=== PATIENT | male | born 1960 | race Caucasian/White ===

== ENCOUNTER 2018-11-12 13:16 | Observation (INO) | payer OTHER, SELFPAY ==
[2018-11-12] VITALS (10 sets, daily range): BP systolic 116–135; BP diastolic 67–89; PULSE 56–89; RESP 13–16; TEMP 36.9–37.7; O2SAT 95–97; BMI 20.2; BMI 18.6; BMI 18.7
--- NOTE | 2018-11-12 13:26 | RAD_ITS ---
STUDY: X-RAY CHEST REASON FOR EXAM: Male, 58 years old. Chest pain. TECHNIQUE: Single AP portable view of the chest. COMPARISON: None. FINDINGS: EKG electrodes are seen. The lungs are clear and expanded. Scattered calcified granulomas. There is no demonstrated pleural abnormality. Normal size heart. Normal mediastinum and jesenia. Normal visualized pulmonary arteries. There is atherosclerotic tortuosity of the aortic arch and descending thoracic aorta. Normal visualized thoracic spine. Normal visualized ribs, clavicles, and shoulders. There is no demonstrated abnormality of the visualized soft tissue structures of the upper abdomen. RAD/Chest 1 View (Portable) IMPRESSION: Normal x-ray examination of the chest. Electronically Signed: Farhat Mejía MD at 14:22 EST Tel [phone], Service support ,
--- NOTE | 2018-11-12 13:26 | EKG12_ITS ---
Test Reason : SYNCOPE Blood Pressure : / mmHG Vent. Rate : 070 BPM Atrial Rate : 070 BPM P-R Int : 150 ms QRS Dur : 090 ms QT Int : 376 ms P-R-T Axes : 040 016 054 degrees QTc Int : 406 ms Normal sinus rhythm Normal ECG Confirmed by GRECIA DANIEL MD ([id number]), state editor ANAHI CARR ([id number] on 11/17/2018 10:04:13 AM Referred By: BRANDON Confirmed By:GRECIA DANIEL MD
--- NOTE | 2018-11-12 13:35 | CT_ITS ---
STUDY: CT BRAIN WITHOUT CONTRAST REASON FOR EXAM: Male, 58 years old. Syncope. RADIATION DOSAGE (If Supplied By Facility): CTDIvol = ( 44.99 ) mGy, DLP = ( 829.85 ) mGycm TECHNIQUE: Transaxial CT imaging of the brain was performed without administration of intravenous contrast material. Individualized dose optimization techniques were used for this CT. COMPARISON: None. FINDINGS: Normal soft tissue structures. Normal calvarium. Normal size ventricles and extra-axial spaces for the patient's age. Normal white matter tracts of the cerebral hemispheres. There are small punctate calcifications of the basal ganglia which are seen in the aging brain as a normal variant. Normal brainstem. Normal cerebellum. There is no intracranial hemorrhage. There are no findings of an acute ischemic infarction. Normal visualized paranasal sinuses. CT/Brain/Head without Contrast IMPRESSION: Normal unenhanced CT scan of the brain. Electronically Signed: Farhat Mejía MD at 14:08 EST Tel [phone], Service support ,
--- NOTE | 2018-11-12 13:39 | ED.DCSUM_ITS ---
- ER Visit Summary Date of Service: 11/12/18 Chief Complaint: Passed out and possible seizure History of Present Illness: The patient is a 58 M history of hypothyroidism and schizoaffective disorder. Patient ate breakfast this morning. He was eating lunch with his sister. Said he felt lightheaded and then she said he passed out while sitting. He did not injure himself. She thinks he may have also had seizure activity. She was not sure what was going on she said his arms start flaring and he pushed stuff off of the table and then she realized he was unconscious. Said he was unconscious for more than 10 minutes. He did come to. Initially his speech was slurred which is now resolved and is back to his baseline. He is never had a seizure before he has had syncopal episodes before they have never been worked up. He denies any recent illness. No headache. No chest pain. No shortness of breath. No abdominal pain. No recent nausea, vomiting or diarrhea. No recent head injury. Of note he does have hypothyroidism. Recently they have been adjusting his thyroid medication but he has had a 22 pound weight loss. No history of any cancer. Physical Examination: Middle-aged obese male no acute distress. Currently sitting upright in bed. His vital signs are stable and afebrile. He is in no distress. He is awake alert and talking to me. He does not look septic or toxic. He does not look dehydrated. HEENT exam is unremarkable. Tubes are round reactive light. No signs of trauma to his face or scalp. No facial droop. Normal speech. He did not bite his tongue. He has moist mucous membranes. Neck is nontender without meningismus. Lungs clear to auscultation bilaterally. Heart regular rhythm no murmur. Rate about 70. Chest wall nontender. Abdomen soft and nontender. Normal bowel sounds no peritoneal signs. Patient is moving all 4 extremities. They are nontender. No deformity. Normal range of motion. He has equal and symmetrical 5 out of 5 craft center director strength. Dorsi and plantar flexion intact. Back is nontender. Skin is unremarkable. Neurologically he is awake and alert with no focal motor or sensory deficits. NIH score is 0. Currently he is not acting post ictal. Test Results: Chest x-ray portable one view no acute abnormality read by myself and radiologist. CT of the brain no acute abnormality. EKG sinus rhythm rate of 70 no acute abnormality. No dysrhythmia nor ischemia. CBC normal. White count of 7. Hemoglobin 13. Chemistries normal. Normal creatinine and gap. Troponin normal. Orthostatic vital signs negative. Emergency Department Course and Treatment: Patient will be worked up for both a possible syncopal episode and/or seizure. Exam at 1450 3 PM patient is doing well. Discussed all test results with he and family. He is comfortable with the admission. Treatment Plan: I spoke to the hospitalist about admission. Disposition: Admission Impression: Acute syncope of uncertain etiology This note was generated with [employer] dictation software. It may contain incorrect words, spelling, and punctuation that were not noted in review of the chart prior to signing ED Disposition - Plan for ED Patient: Chief Complaint: Syncope
[2018-11-12 13:48] LABS: Absolute Lymphocyte Count 1.37 X10^3/ul (0.83-4.51); Absolute Neutrophil Count 5.2 X10^3/uL (2.0-7.7); Basophil# 0.01 X10^3/uL; Basophil% 0.1 % (0-1); Eosinophil# 0.03 X10^3/uL; Eosinophils% 0.4 % (0-5); Lymphocyte # 1.37 X10^3/ul (4.0); Lymphocyte % 19.6 % (19-41); Mean Corp Hgb Conc 32.5 g/gl (32-36); Mean Corpuscular Hgb 31.6 pg (27.0-32.0); Mean Corpuscular Volume 97.1 fL (80-94); Monocyte# 0.41 X10^3/uL; Monocyte% 5.9 % (0-10); Neutrophil # 5.18 X10^3/uL (2.7-7.7); Platelet Count 209 K/mm3 (150-450); RBC Distribution Width CV 13.2 % (11.6-14.6); RBC Distribution Width SD 46.7 fl (35.1-43.9); Red Blood Count 4.12 M/mm3 (4.6-6.2)
[2018-11-12 13:49] LABS: POSITIVE COUNT NO; POSITIVE DIFFERENTIAL NO; POSITIVE MORPHOLOGY NO
[2018-11-12 14:02] LABS: Anion Gap 9 (5-15); BUN 21 mg/dL (7-18); BUN/Creat Ratio 19.1 RATIO (10-20); Calcium,Total 8.5 mg/dL (8.5-10.1); Chloride 104 mmol/L (98-107); EST Glomerular Filtration Rate 73 mL/min (>60); Est Glom Filt Rate - Afr Amer 88 mL/min (>60); Estimated Creatinine Clearance 72.39 ml/min; Glucose 124 mg/dL (74-106); Potassium 3.7 mmol/L (3.5-5.1); Sodium Level 140 mmol/L (136-145)
--- NOTE | 2018-11-12 15:23 | NURSING ---
PCU OBS ACUTE SYNCOPAL EVENT OF UNCERTAIN CAUSE MAY
--- NOTE | 2018-11-12 15:32 | PCM.HP.STD ---
Problem List (1) Syncope Status: Acute Qualifiers: Syncope type: unspecified Qualified Code(s): R55 - Syncope and collapse History of Present Illness Date of Admission: 11/12/18 Chief Complaint: loss of consiousness The patient is a 58 year old M who was having lunch today and then during the meal patient's arms splayed out and knocked down objects on the table. Patient was unresponsive roughly 15 minutes. Afterwards, patient was confused for about 5 minutes and then eventually came to. Patient did not have any bladder incontinence but did state that he had to go to the bathroom after the event. The family noted that the patient was unsteady after the event but did improve. Patient had an event about a year ago where he was up in his room in the past had hitting the hitting the wall and then had another event about a year prior to that. Patient has never been evaluated for these events previously. Much of the history is obtained through the emergency room physician as well as the family at bedside as the patient has no recollection of the events. The patient denies feeling abnormal prior to it. [] Past Medical History Medical History: Medical History (Last Updated 11/12/18 @ 15:35 by Ed Gonzalez DO) Hypothyroidism E03.9 IBS (irritable bowel syndrome) K58.9 Schizophrenia F20.9 Allergies No Known Allergies Allergy (Verified 11/12/18 13:24) Home Medications: Ambulatory Orders Medication Instructions Recorded Lurasidone HCl [Latuda] 20 mg PO BID 11/12/18 Thioridazine HCl 50 mg PO QHS 11/12/18 Thyroid [[place] Thyroid] 60 mg PO DAILY 11/12/18 Psychiatric History: Schizophrenia Lives: With Family Smoking Status: Never smoker Tobacco Use: Non-smoker Alcohol: None Drugs: None - *Family History Maternal History Items: - - no CVA Review of Systems Constitutional: Denies: Anorexia, Chills, Fever Eyes: Denies: Blurred vision, Double vision HEENT: Denies: Head Aches, Sinus Congestion, Sinus Drainage Cardiovascular: Denies: Chest Pain, Edema Respiratory: Denies: Cough, Shortness of breath at rest, Sputum production Gastrointestinal: Denies: Abdominal Pain, Nausea, Vomiting Genitourinary: Denies: Dysuria Musculoskeletal: Denies: Joint Pain, Joint Tenderness Skin: Denies: Dryness, Jaundice Neurological: Denies: Balance problems, Blurred vision, Double vision, Change in Speech Psychiatric: Denies: Anxiety, Depression Endocrine: Reports: Change in Body Habitus - Lost 20 pounds over the past year. Denies: Heat/ Cold Intolerance Hematologic/ Lymphatic: Denies: Easy Bruising, Easy Bleeding, Hx of blood clot Comment: Family notes that he has mental limitations. A 10 point review of systems were negative except as mentioned in the history of present illness and the other review of systems. VTE Information - Inpt Only VTE Present on Admission: No VTE Mechan Device Prophylaxis: None VTE Pharm Prophylaxis ordered?: Yes Patient Problems: Active and Suspected Problems Syncope (Acute) - Physical Exam General: Alert, Oriented x3, Cooperative, No apparent distress, Confused - Had difficulty following finger to nose instructions despite being informed that several times and also had difficulty following task of tracking finger with his eyes. HEENT: Atraumatic, PERRLA, EOMI, Normocephalic, - - Proptosis Oral: Moist Mucosa, No Gingival or Mucosal Lesions/ Ulcerations Neck: No Nodes, Thyroid Normal Size and Texture Lungs: Clear to auscultation, Normal air movement, No rhonchi, No wheeze Cardiovascular: Regular rate, Regular Rhythm, Normal S1, Normal S2, No murmurs Abdomen: Bowel Sounds Present, Soft, Non Tender, Non-Distended, No Hepato-splenomegaly Extremities: No edema, No Calf Tenderness Skin: No rashes, No breakdown Musculoskeletal: No Tenderness to Palpation of Joints or Extremities, No Muscle Wasting Neurological: Cranial nerves II-XII grossly intact, Neuro grossly intact, Motor Exam 5/5 strength throughout Psych/Mental Status: Appropriate, Flat Affect Vital Signs Temp Pulse Resp BP Pulse Ox 36.9 C 78 13 116/67 97 11/12/18 13:20 11/12/18 14:52 11/12/18 14:30 11/12/18 14:52 11/12/18 14:30 Oxygen Delivery Method Room Air Weight: 71.668 kg Body Mass Index (BMI) 20.2 Laboratory Tests Past 24 Hrs 11/12/18 11/12/18 13:25 13:25 WBC 7.0 RBC 4.12 L Hgb 13.0 Hct 40.0 MCV 97.1 H MCH 31.6 MCHC 32.5 RDW 13.2 RDW Differential 46.7 H Plt Count 209 MPV 10.0 Immature Gran % (Auto) 0.000 Neut % (Auto) 74.0 H Lymph % (Auto) 19.6 [place] % (Auto) 5.9 Eos % (Auto) 0.4 Baso % (Auto) 0.1 Absolute Neuts (auto) 5.2 Absolute Lymphs (auto) 1.37 Total Counted Not Reportable Sodium 140 Potassium 3.7 Chloride 104 Carbon Dioxide 27.0 Anion Gap 9 BUN 21 H Creatinine 1.10 Estim Creat Clear Calc 72.39 Est GFR (MDRD) Af Amer 88 Est GFR (MDRD) Non-Af 73 BUN/Creatinine Ratio 19.1 Glucose 124 H Calcium 8.5 Troponin I < 0.015 EKG reviewed and showed normal sinus rhythm without any acute changes. Clinical Impression(s) from Imaging Studies Chest X-Ray 11/12/18 13:26 IMPRESSION: Normal x-ray examination of the chest. Electronically Signed: Farhat Mejía MD at 14:22 EST Tel [phone], Service support , Brain CT 11/12/18 13:35 IMPRESSION: Normal unenhanced CT scan of the brain. Electronically Signed: Farhat Mejía MD at 14:08 EST Tel [phone], Service support , Assessment/Plan All Active Problems Syncope (Acute) 1. Syncope Atypical presentation given the length and what may be some prolonged confusion. It may be vasovagal event but given its protracted nature I think it is prudent to rule out a seizure. Patient has had other what seem like unprovoked events in the past that were never fully evaluated. He will be on telemetry Check an MRI and EEG Orthostatic vital signs emergency room were negative May require 30-day event monitor upon discharge 2. Hypothyroidism Per the family, he has lost 20 pounds over the past year that has not been explained Has been switched over to [place] Thyroid from what sounds like Synthroid Check a TSH 3. IBS Has not had a GI evaluation. asked about colonoscopy, I told her that that would have to be deferred as an outpatient. I did express that patient is long overdue for his screening colonoscopy. This may also be a further evaluation particular if the thyroid workup comes back unremarkable to explain his weight loss 4. Schizophrenia Continue with thioridazine and lurasidone 5. DVT proph: LMWH. Code Visit OBSV E&M: 51776 Initial observation care L3
--- NOTE | 2018-11-12 15:37 | HP.PCM_ITS ---
Problem List (1) Syncope Status: Acute Qualifiers: Syncope type: unspecified Qualified Code(s): R55 - Syncope and collapse History of Present Illness Date of Admission: 11/12/18 Chief Complaint: loss of consiousness The patient is a 58 year old M who was having lunch today and then during the meal patient's arms splayed out and knocked down objects on the table. Patient was unresponsive roughly 15 minutes. Afterwards, patient was confused for about 5 minutes and then eventually came to. Patient did not have any bladder incontinence but did state that he had to go to the bathroom after the event. The family noted that the patient was unsteady after the event but did improve. Patient had an event about a year ago where he was up in his room in the past had hitting the hitting the wall and then had another event about a year prior to that. Patient has never been evaluated for these events previously. Much of the history is obtained through the emergency room physician as well as the family at bedside as the patient has no recollection of the events. The patient denies feeling abnormal prior to it. [] Past Medical History Medical History: Medical History (Last Updated 11/12/18 @ 15:35 by Ed Gonzalez DO) Hypothyroidism E03.9 IBS (irritable bowel syndrome) K58.9 Schizophrenia F20.9 Allergies No Known Allergies Allergy (Verified 11/12/18 13:24) Home Medications: Ambulatory Orders Medication Instructions Recorded Lurasidone HCl [Latuda] 20 mg PO BID 11/12/18 Thioridazine HCl 50 mg PO QHS 11/12/18 Thyroid [[place] Thyroid] 60 mg PO DAILY 11/12/18 Psychiatric History: Schizophrenia Lives: With Family Smoking Status: Never smoker Tobacco Use: Non-smoker Alcohol: None Drugs: None - *Family History Maternal History Items: - - no CVA Review of Systems Constitutional: Denies: Anorexia, Chills, Fever Eyes: Denies: Blurred vision, Double vision HEENT: Denies: Head Aches, Sinus Congestion, Sinus Drainage Cardiovascular: Denies: Chest Pain, Edema Respiratory: Denies: Cough, Shortness of breath at rest, Sputum production Gastrointestinal: Denies: Abdominal Pain, Nausea, Vomiting Genitourinary: Denies: Dysuria Musculoskeletal: Denies: Joint Pain, Joint Tenderness Skin: Denies: Dryness, Jaundice Neurological: Denies: Balance problems, Blurred vision, Double vision, Change in Speech Psychiatric: Denies: Anxiety, Depression Endocrine: Reports: Change in Body Habitus - Lost 20 pounds over the past year. Denies: Heat/ Cold Intolerance Hematologic/ Lymphatic: Denies: Easy Bruising, Easy Bleeding, Hx of blood clot Comment: Family notes that he has mental limitations. A 10 point review of systems were negative except as mentioned in the history of present illness and the other review of systems. VTE Information - Inpt Only VTE Present on Admission: No VTE Mechan Device Prophylaxis: None VTE Pharm Prophylaxis ordered?: Yes Patient Problems: Active and Suspected Problems Syncope (Acute) - Physical Exam General: Alert, Oriented x3, Cooperative, No apparent distress, Confused - Had difficulty following finger to nose instructions despite being informed that several times and also had difficulty following task of tracking finger with his eyes. HEENT: Atraumatic, PERRLA, EOMI, Normocephalic, - - Proptosis Oral: Moist Mucosa, No Gingival or Mucosal Lesions/ Ulcerations Neck: No Nodes, Thyroid Normal Size and Texture Lungs: Clear to auscultation, Normal air movement, No rhonchi, No wheeze Cardiovascular: Regular rate, Regular Rhythm, Normal S1, Normal S2, No murmurs Abdomen: Bowel Sounds Present, Soft, Non Tender, Non-Distended, No Hepato- splenomegaly Extremities: No edema, No Calf Tenderness Skin: No rashes, No breakdown Musculoskeletal: No Tenderness to Palpation of Joints or Extremities, No Muscle Wasting Neurological: Cranial nerves II-XII grossly intact, Neuro grossly intact, Motor Exam 5/5 strength throughout Psych/Mental Status: Appropriate, Flat Affect Vital Signs Temp Pulse Resp BP Pulse Ox 36.9 C 78 13 116/67 97 11/12/18 13:20 11/12/18 14:52 11/12/18 14:30 11/12/18 14:52 11/12/18 14:30 Oxygen Delivery Method Room Air Weight: 71.668 kg Body Mass Index (BMI) 20.2 Laboratory Tests Past 24 Hrs 11/12/18 11/12/18 13:25 13:25 WBC 7.0 RBC 4.12 L Hgb 13.0 Hct 40.0 MCV 97.1 H MCH 31.6 MCHC 32.5 RDW 13.2 RDW Differential 46.7 H Plt Count 209 MPV 10.0 Immature Gran % (Auto) 0.000 Neut % (Auto) 74.0 H Lymph % (Auto) 19.6 [place] % (Auto) 5.9 Eos % (Auto) 0.4 Baso % (Auto) 0.1 Absolute Neuts (auto) 5.2 Absolute Lymphs (auto) 1.37 Total Counted Not Reportable Sodium 140 Potassium 3.7 Chloride 104 Carbon Dioxide 27.0 Anion Gap 9 BUN 21 H Creatinine 1.10 Estim Creat Clear Calc 72.39 Est GFR (MDRD) Af Amer 88 Est GFR (MDRD) Non-Af 73 BUN/Creatinine Ratio 19.1 Glucose 124 H Calcium 8.5 Troponin I < 0.015 EKG reviewed and showed normal sinus rhythm without any acute changes. Clinical Impression(s) from Imaging Studies Chest X-Ray 11/12/18 13:26 IMPRESSION: Normal x-ray examination of the chest. Electronically Signed: Farhat Mejía MD at 14:22 EST Tel [phone], Service support , Brain CT 11/12/18 13:35 IMPRESSION: Normal unenhanced CT scan of the brain. Electronically Signed: Farhat Mejía MD at 14:08 EST Tel [phone], Service support , Assessment/Plan All Active Problems Syncope (Acute) 1. Syncope Atypical presentation given the length and what may be some prolonged confusion. It may be vasovagal event but given its protracted nature I think it is prudent to rule out a seizure. Patient has had other what seem like unprovoked events in the past that were never fully evaluated. He will be on telemetry Check an MRI and EEG Orthostatic vital signs emergency room were negative May require 30-day event monitor upon discharge 2. Hypothyroidism Per the family, he has lost 20 pounds over the past year that has not been explained Has been switched over to [place] Thyroid from what sounds like Synthroid Check a TSH 3. IBS Has not had a GI evaluation. asked about colonoscopy, I told her that that would have to be deferred as an outpatient. I did express that patient is long overdue for his screening colonoscopy. This may also be a further evaluation particular if the thyroid workup comes back unremarkable to explain his weight loss 4. Schizophrenia Continue with thioridazine and lurasidone 5. DVT proph: LMWH. Code Visit OBSV E&M: 44527 Initial observation care L3
--- NOTE | 2018-11-12 15:55 | ECHOD_ITS ---
Reason For Study: SYNCOPE Procedure This was a 2D Doppler, Color Flow transthoracic echocardiogram. The study was technically difficult. Due to body habitus. Exam performed portable in patient room. Left Ventricle Normal size and thickness. The estimated ejection fraction is 60 %. Stage 1 diastolic dysfunction. No regional wall motion abnormalities noted. Right Ventricle Mildly dilated right ventricle. Normal systolic function. Mitral Valve Mild diffuse mitral valve thickening. Moderate mitral annular calcification extending into the posterior leaflet. Tricuspid Valve Normal tricuspid valve. Trivial tricuspid valve insufficiency. Right ventricular systolic pressure estimated to be 25 mmHg. Aortic Valve Trisinus/trileaflet aortic valve. Mild diffuse aortic valve thickening. Pulmonic Valve Normal pulmonic valve. Great Vessels Normal aortic root. Normal arch. Normal inferior vena cava. Inferior vena cava collapse with sniff. Pericardium/Pleural No pericardial effusion. MMode/2D Measurements & Calculations LVIDd: 4.2 cm IVSd: 0.99 cm Ao root diam: 4.0 cm LVIDs: 3.2 cm LVPWd: 1.0 cm RVDd: 3.6 cm FS: 24.1 % LAV(MOD-bp): 42.0 ml LA A4 area: 15.1 cm2 LA dimension(2D): 3.6 cm LAV(MOD-bp) Indexed: 21.4 ml/m2 LAV(MOD-sp2): 42.0 ml LAV(MOD-sp4): 41.5 ml RA A4 area: 13.2 cm2 Doppler Measurements & Calculations MV E max tony: 96.5 cm/sec Lat Peak E' Tony: 10.7 cm/sec Med Peak E' Tony: 7.2 cm/sec MV A max tony: 109.7 cm/sec E/E' lat: 9.0 E/E' med: 13.3 MV E/A: 0.88 Ao V2 max: 164.0 cm/sec LV V1 max: 100.0 cm/sec TR max tony: 222.3 cm/sec Ao max P.8 mmHg LV V1 max P.0 mmHg TR max P.8 mmHg Interpretation Summary The estimated ejection fraction is 60 %. Stage 1 diastolic dysfunction. Mildly dilated right ventricle. Trivial tricuspid valve insufficiency. Right ventricular systolic pressure estimated to be 25 mmHg. Compared to echo report dated 07/30/2013, no appreciable changes noted. The study was technically difficult. Ordering Physician: Ed Gonzalez Referring Physician: Silas Valderrama Performed By: Natalia Jordan RDCS, RVT
--- NOTE | 2018-11-12 15:55 | MRI_ITS ---
STUDY: MRI BRAIN WITHOUT CONTRAST REASON FOR EXAM: Male, 58 years old. Syncope and confusion TECHNIQUE: Standardized multiplanar fat and water weighted pulse sequences were obtained. COMPARISON: CT the brain on November 12, 2018 FINDINGS: Normal size of the ventricles and extra-axial spaces for the patient's age. Normal white matter tracts of the supratentorial brain. Normal bilateral basal ganglia. Normal thalami. There is no extra-axial fluid accumulation. Normal flow voids within the major intracranial circulation suggesting patency by spin echo criteria. Normal sella turcica, pituitary gland, infundibular stalk, optic chiasm and hypothalamus. Normal tectal plate and pineal gland. Normal midbrain, alina and medulla. Normal cerebellum. Normal basal cisterns. Normal bilateral temporal bones. Normal bilateral internal auditory canals. No demonstrated orbital abnormality, within the constraints of a routine brain study. Mild mucosal thickening of the ethmoid air cells bilaterally.. Normal calvarium and skull base. Normal visualized soft tissue structures. Normal visualized upper cervical spine. MRI/Brain without Contrast IMPRESSION: Normal unenhanced MRI of the brain. Mild bilateral ethmoid sinus disease Electronically Signed: Glen Paulino MD at 19:25 EST , Service support ,
[2018-11-12 16:46] LABS: Thyroid Stim Hormone (TSH) 3.64 uIU/mL (0.358-3.74)
[2018-11-12] MEDS: CLARIFY ORDER NOTE (18:45)
[2018-11-13] VITALS (12 sets, daily range): BP systolic 71–122; BP diastolic 55–77; PULSE 55–87; RESP 14–16; TEMP 36.9–37.1; O2SAT 96–97
[2018-11-13] MEDS: Thyroid 60 MG Tablet PO (05:49)
[2018-11-13 05:53] LABS: Anion Gap 7 (5-15); BUN 18 mg/dL (7-18); BUN/Creat Ratio 18.1 RATIO (10-20); Calcium,Total 8.6 mg/dL (8.5-10.1); Chloride 106 mmol/L (98-107); EST Glomerular Filtration Rate 81 mL/min (>60); Est Glom Filt Rate - Afr Amer 98 mL/min (>60); Estimated Creatinine Clearance 73.22 ml/min; Glucose 87 mg/dL (74-106); Potassium 4.1 mmol/L (3.5-5.1); Sodium Level 141 mmol/L (136-145)
[2018-11-13] MEDS: Glucerna Shake 120 ML LIQUID PO (07:52)
[2018-11-13] MEDS: 0.9% Normal Saline 1,000 ML 125 ML IV (09:34)
[2018-11-13] MEDS: Enoxaparin 40 MG/0.4 ML Syringe SC (09:35)
--- NOTE | 2018-11-13 09:38 | NURSING ---
Pt up to BR, while RN in room, tolerated well
--- NOTE | 2018-11-13 15:08 | DCINST_ITS ---
- Discharge Diagnoses Current Active Problems: Current Active and Chronic Problems (Last Updated 11/12/18 @ 15:35 by Ed Gonzalez DO) Syncope (Acute) You will use the following diet at home:: No restrictions Your food should be the consistency of: Regular Your liquids should be the consistency of: Regular/Thin Discharge Activity: Return to Normal Activity Allergies/Adverse Reactions: Allergies No Known Allergies Allergy (Verified 11/12/18 13:24) Medications to take at Discharge Lurasidone HCl [Latuda] 20 mg PO BID 11/12/18 Thioridazine HCl 25 mg PO QHS 11/12/18 Thyroid [[place] Thyroid] 60 mg PO DAILY 11/12/18 Primary Care Physician: Silas Valderrama DO [Primary Care Provider] - Please follow up with your Primary Care Physician in: 1-2 Test Results: Test results from this visit will be discussed in further detail at your follow- up appointment, if applicable. Proposed Discharge Date: 11/13/18
--- NOTE | 2018-11-13 15:38 | PCM.DC.SUM ---
<Genaro Cedeno - Last Filed: 11/13/18 15:38> Discharge Date and Diagnosis - Problem List Patient Problems: Active and Suspected Problems (Last Updated 11/12/18 @ 15:35 by Ed Gonzalez DO) Syncope (Acute) Date of Admission: 11/12/18 Date of Discharge: 11/13/18 - Primary Discharge Diagnosis Active and Suspected Problems (Last Updated 11/12/18 @ 15:35 by Ed Gonzalez DO) Syncope (Acute) Hospital Course and Treatment Imaging Results: EEG - pending. RAD/Chest 1 View (Portable) IMPRESSION: Normal x-ray examination of the chest. CT/Brain/Head without Contrast IMPRESSION: Normal unenhanced CT scan of the brain. MRI/Brain without Contrast IMPRESSION: Normal unenhanced MRI of the brain. Mild bilateral ethmoid sinus disease Echo: Interpretation Summary The estimated ejection fraction is 60 %. Stage 1 diastolic dysfunction. Mildly dilated right ventricle. Trivial tricuspid valve insufficiency. Right ventricular systolic pressure estimated to be 25 mmHg. Compared to echo report dated 07/30/2013, no appreciable changes noted. The study was technically difficult. Operations: None Procedures: 2-D Echocardiogram, Electroencephalogram Summary of Care Provided: Hospital course: The patient is a 58 year old M with past medical history of hypothyroidism, schizophrenia, irritable bowel syndrome, who presented to the emergency room with complaints of passing out at the table during a meal. He was unresponsive for about 15 minutes, woke up and was confused for about 5 minutes, then was back to normal. There is no loss of continence, however there is questionable shaking prior to the syncopal episode. He had had similar episodes in the past but was never evaluated. CT of the brain was obtained which was negative. TSH was normal. The patient was admitted to the PCU and placed on telemetry for syncope. An EEG was obtained, this is pending. He had no events on telemetry. Orthostatic vitals were obtained and these were positive with a drop in his diastolic blood pressure from sitting to standing from 69-55. He also had a mildly elevated BUN. He was given IV fluids. The following day he had an echocardiogram which was negative. He had no further episodes, and had no dizziness or lightheadedness. Is felt that his symptoms were likely secondary to dehydration and orthostatic hypotension. His mobility manager were checked again after receiving IV fluids and were negative. He will be discharged home in stable condition. He will need to follow-up with his PCP in 1-2 weeks. He can obtain his EEG results as an outpatient when he follows up. This patient was seen by Genaro Cedeno PA-C under the supervision of Doctor Maddie. [] Patient Problems: Active and Suspected Problems (Last Updated 11/12/18 @ 15:35 by Ed Gonzalez DO) Syncope (Acute) - Physical Exam General: Alert, Oriented x3, Cooperative HEENT: Atraumatic, PERRLA, EOMI, Normocephalic Neck: Supple, No JVD, Negative Carotid Bruits Lungs: Clear to auscultation, Normal air movement Cardiovascular: Regular rate, No murmurs Abdomen: Bowel Sounds Present, Soft, Non Tender Extremities: No edema, Capillary Refill Less than 3 Seconds Skin: No rashes, No breakdown Musculoskeletal: No Tenderness to Palpation of Joints or Extremities Neurological: Cranial nerves II-XII grossly intact Psych/Mental Status: Normal Affect, Appropriate, Alert and oriented to time, place, person, mood and affect Vital Signs Temp Pulse Resp BP Pulse Ox 98.4 F 66 16 106/70 96 11/13/18 12:37 11/13/18 15:16 11/13/18 12:37 11/13/18 15:16 11/13/18 13:55 Oxygen Delivery Method Room Air Weight: 145 lb 4.554 oz Body Mass Index (BMI) 18.6 Orthostatic Vital Signs Start: 11/12/18 17:29 Freq: q24h Status: Active Protocol: Activity Type Activity Date Activity User E-Sign Co-Sign Detail Recorded Client Recorded Date Recorded By Document 11/13/18 15:16 DW [id number] 11/13/18 15:17 DW 11/13/18 15:16 Orthostatic Vitals Standing -Blood Pressure (90/60-120/80) 118/77 -Extremity Use Right Arm -Pulse Rate (60-100) 66 Sitting -Blood Pressure (90/60-120/80) 122/73 H -Extremity Use Right Arm -Pulse Rate (60-100) 64 Lying -Blood Pressure (90/60-120/80) 106/70 -Extremity Use Left Arm -Pulse Rate (60-100) 66 Intake and Output for Last 24 Hours 11/11/18 11/12/18 11/13/18 23:59 23:59 23:59 Intake Total 600 / 600 Balance 600 / 600 Laboratory Tests Past 24 Hrs 11/12/18 11/13/18 13:25 04:56 Sodium 141 Potassium 4.1 Chloride 106 Carbon Dioxide 28.0 Anion Gap 7 BUN 18 Creatinine 1.00 Estim Creat Clear Calc 73.22 Est GFR (MDRD) Af Amer 98 Est GFR (MDRD) Non-Af 81 BUN/Creatinine Ratio 18.1 Glucose 87 Calcium 8.6 TSH 3.64 Discharge Diet: No Restrictions Discharge Activity: Return to Normal Activity Home Medications: Medications to take at Discharge Lurasidone HCl [Latuda] 20 mg PO BID 11/12/18 Thioridazine HCl 25 mg PO QHS 11/12/18 Thyroid [[place] Thyroid] 60 mg PO DAILY 11/12/18 Primary Care Physician: Silas Valderrama DO [Primary Care Provider] - Please follow up with your Primary Care Physician in: 1-2 Please Follow Up With: Silas Valderrama DO Disposition: Home Minutes spent on discharge:: 35 Patient Condition:: Stable Medical Necessity - Tobacco Use Smoking Status: Never smoker Tobacco Use: Non-smoker Meaningful Use Info Meaningful Use Diagnoses (Choose all that apply): None applicable <Biajn Perkins F - Last Filed: 11/13/18 16:01> Discharge Date and Diagnosis - Primary Discharge Diagnosis Active and Suspected Problems (Last Updated 11/12/18 @ 15:35 by Ed Gonzalez DO) Syncope (Acute) Hospital Course and Treatment Summary of Care Provided: The patient is a 58 year old M [] - Physical Exam Vital Signs Temp Pulse Resp BP Pulse Ox 98.4 F 66 16 106/70 96 11/13/18 12:37 11/13/18 15:16 11/13/18 12:37 11/13/18 15:16 11/13/18 13:55 Oxygen Delivery Method Room Air Weight: 145 lb 4.554 oz Body Mass Index (BMI) 18.6 Orthostatic Vital Signs Start: 11/12/18 17:29 Freq: q24h Status: Active Protocol: Activity Type Activity Date Activity User E-Sign Co-Sign Detail Recorded Client Recorded Date Recorded By Document 11/13/18 15:16 DW [id number] 11/13/18 15:17 DW 11/13/18 15:16 Orthostatic Vitals Standing -Blood Pressure (90/60-120/80) 118/77 -Extremity Use Right Arm -Pulse Rate (60-100) 66 Sitting -Blood Pressure (90/60-120/80) 122/73 H -Extremity Use Right Arm -Pulse Rate (60-100) 64 Lying -Blood Pressure (90/60-120/80) 106/70 -Extremity Use Left Arm -Pulse Rate (60-100) 66 Intake and Output for Last 24 Hours 11/11/18 11/12/18 11/13/18 23:59 23:59 23:59 Intake Total 600 / 600 Balance 600 / 600 Laboratory Tests Past 24 Hrs 11/12/18 11/13/18 13:25 04:56 Sodium 141 Potassium 4.1 Chloride 106 Carbon Dioxide 28.0 Anion Gap 7 BUN 18 Creatinine 1.00 Estim Creat Clear Calc 73.22 Est GFR (MDRD) Af Amer 98 Est GFR (MDRD) Non-Af 81 BUN/Creatinine Ratio 18.1 Glucose 87 Calcium 8.6 TSH 3.64 Code Visit Addendum: Dr. Perkins I personally examined the patient and reviewed the chart. I agree with the above. 58-year-old male with a history of schizoaffective disorder and hypothyroidism, who presented with an episode of syncope at home while eating dinner. There was some concern for possible seizure activity because he had splayed out his arms and knocked things off the table as he passed out, however he was not incontinent of stool or urine and did not have significant fatigue or any type of Gregory's paralysis after the episode. An EEG was performed today however it has not been read yet. An echo was also done which was normal and unchanged from his previous baseline echo. He received a couple liters of IV fluids and now feels much better than he did when he came in. Part of this issue is he is on thioridazine and Latuda for his schizophrenia/schizoaffective disorder, both of which can cause significant postural hypotension. I would consider transitioning him to 1 of the newer antipsychotics if this continues to be an issue. CT and MRI of the brain were both negative. He is to follow-up with his primary care physician in the next 3-5 days, per the there was concern for his thyroid function being abnormal, TSH was obtained which was 3.64. OBSV E&M: 87516 Observation care discharge
--- NOTE | 2018-11-13 15:44 | DS.PCM_ITS ---
<Genaro Cedeno - Last Filed: 11/13/18 15:38> Discharge Date and Diagnosis - Problem List Patient Problems: Active and Suspected Problems (Last Updated 11/12/18 @ 15:35 by Ed Gonzalez DO) Syncope (Acute) Date of Admission: 11/12/18 Date of Discharge: 11/13/18 - Primary Discharge Diagnosis Active and Suspected Problems (Last Updated 11/12/18 @ 15:35 by Ed Gonzalez DO) Syncope (Acute) Hospital Course and Treatment Imaging Results: EEG - pending. RAD/Chest 1 View (Portable) IMPRESSION: Normal x-ray examination of the chest. CT/Brain/Head without Contrast IMPRESSION: Normal unenhanced CT scan of the brain. MRI/Brain without Contrast IMPRESSION: Normal unenhanced MRI of the brain. Mild bilateral ethmoid sinus disease Echo: Interpretation Summary The estimated ejection fraction is 60 %. Stage 1 diastolic dysfunction. Mildly dilated right ventricle. Trivial tricuspid valve insufficiency. Right ventricular systolic pressure estimated to be 25 mmHg. Compared to echo report dated 07/30/2013, no appreciable changes noted. The study was technically difficult. Operations: None Procedures: 2-D Echocardiogram, Electroencephalogram Summary of Care Provided: Hospital course: The patient is a 58 year old M with past medical history of hypothyroidism, schizophrenia, irritable bowel syndrome, who presented to the emergency room with complaints of passing out at the table during a meal. He was unresponsive for about 15 minutes, woke up and was confused for about 5 minutes, then was back to normal. There is no loss of continence, however there is questionable shaking prior to the syncopal episode. He had had similar episodes in the past but was never evaluated. CT of the brain was obtained which was negative. TSH was normal. The patient was admitted to the PCU and placed on telemetry for syncope. An EEG was obtained, this is pending. He had no events on telemetry. Orthostatic vitals were obtained and these were positive with a drop in his diastolic blood pressure from sitting to standing from 69-55. He also had a mildly elevated BUN. He was given IV fluids. The following day he had an echocardiogram which was negative. He had no further episodes, and had no dizziness or lightheadedness. Is felt that his symptoms were likely secondary to dehydration and orthostatic hypotension. His machine stapler were checked again after receiving IV fluids and were negative. He will be discharged home in stable condition. He will need to follow-up with his PCP in 1-2 weeks. He can obtain his EEG results as an outpatient when he follows up. This patient was seen by Genaro Cedeno PA-C under the supervision of Doctor Maddie. [] Patient Problems: Active and Suspected Problems (Last Updated 11/12/18 @ 15:35 by Ed Gonzalez DO) Syncope (Acute) - Physical Exam General: Alert, Oriented x3, Cooperative HEENT: Atraumatic, PERRLA, EOMI, Normocephalic Neck: Supple, No JVD, Negative Carotid Bruits Lungs: Clear to auscultation, Normal air movement Cardiovascular: Regular rate, No murmurs Abdomen: Bowel Sounds Present, Soft, Non Tender Extremities: No edema, Capillary Refill Less than 3 Seconds Skin: No rashes, No breakdown Musculoskeletal: No Tenderness to Palpation of Joints or Extremities Neurological: Cranial nerves II-XII grossly intact Psych/Mental Status: Normal Affect, Appropriate, Alert and oriented to time, place, person, mood and affect Vital Signs Temp Pulse Resp BP Pulse Ox 98.4 F 66 16 106/70 96 11/13/18 12:37 11/13/18 15:16 11/13/18 12:37 11/13/18 15:16 11/13/18 13:55 Oxygen Delivery Method Room Air Weight: 145 lb 4.554 oz Body Mass Index (BMI) 18.6 Orthostatic Vital Signs Start: 11/12/18 17:29 Freq: q24h Status: Active Protocol: Activity Type Activity Date Activity User E-Sign Co-Sign Detail Recorded Client Recorded Date Recorded By Document 11/13/18 15:16 DW [id number] 11/13/18 15:17 DW 11/13/18 15:16 Orthostatic Vitals Standing -Blood Pressure (90/60-120/80) 118/77 -Extremity Use Right Arm -Pulse Rate (60-100) 66 Sitting -Blood Pressure (90/60-120/80) 122/73 H -Extremity Use Right Arm -Pulse Rate (60-100) 64 Lying -Blood Pressure (90/60-120/80) 106/70 -Extremity Use Left Arm -Pulse Rate (60-100) 66 Intake and Output for Last 24 Hours 11/11/18 11/12/18 11/13/18 23:59 23:59 23:59 Intake Total 600 / 600 Balance 600 / 600 Laboratory Tests Past 24 Hrs 11/12/18 11/13/18 13:25 04:56 Sodium 141 Potassium 4.1 Chloride 106 Carbon Dioxide 28.0 Anion Gap 7 BUN 18 Creatinine 1.00 Estim Creat Clear Calc 73.22 Est GFR (MDRD) Af Amer 98 Est GFR (MDRD) Non-Af 81 BUN/Creatinine Ratio 18.1 Glucose 87 Calcium 8.6 TSH 3.64 Discharge Diet: No Restrictions Discharge Activity: Return to Normal Activity Home Medications: Medications to take at Discharge Lurasidone HCl [Latuda] 20 mg PO BID 11/12/18 Thioridazine HCl 25 mg PO QHS 11/12/18 Thyroid [[place] Thyroid] 60 mg PO DAILY 11/12/18 Primary Care Physician: Silas Valderrama DO [Primary Care Provider] - Please follow up with your Primary Care Physician in: 1-2 Please Follow Up With: Silas Valderrama DO Disposition: Home Minutes spent on discharge:: 35 Patient Condition:: Stable Medical Necessity - Tobacco Use Smoking Status: Never smoker Tobacco Use: Non-smoker Meaningful Use Info Meaningful Use Diagnoses (Choose all that apply): None applicable <Bijan Perkins F - Last Filed: 11/13/18 16:01> Discharge Date and Diagnosis - Primary Discharge Diagnosis Active and Suspected Problems (Last Updated 11/12/18 @ 15:35 by Ed Gonzalez DO) Syncope (Acute) Hospital Course and Treatment Summary of Care Provided: The patient is a 58 year old M [] - Physical Exam Vital Signs Temp Pulse Resp BP Pulse Ox 98.4 F 66 16 106/70 96 11/13/18 12:37 11/13/18 15:16 11/13/18 12:37 11/13/18 15:16 11/13/18 13:55 Oxygen Delivery Method Room Air Weight: 145 lb 4.554 oz Body Mass Index (BMI) 18.6 Orthostatic Vital Signs Start: 11/12/18 17:29 Freq: q24h Status: Active Protocol: Activity Type Activity Date Activity User E-Sign Co-Sign Detail Recorded Client Recorded Date Recorded By Document 11/13/18 15:16 DW [id number] 11/13/18 15:17 DW 11/13/18 15:16 Orthostatic Vitals Standing -Blood Pressure (90/60-120/80) 118/77 -Extremity Use Right Arm -Pulse Rate (60-100) 66 Sitting -Blood Pressure (90/60-120/80) 122/73 H -Extremity Use Right Arm -Pulse Rate (60-100) 64 Lying -Blood Pressure (90/60-120/80) 106/70 -Extremity Use Left Arm -Pulse Rate (60-100) 66 Intake and Output for Last 24 Hours 11/11/18 11/12/18 11/13/18 23:59 23:59 23:59 Intake Total 600 / 600 Balance 600 / 600 Laboratory Tests Past 24 Hrs 11/12/18 11/13/18 13:25 04:56 Sodium 141 Potassium 4.1 Chloride 106 Carbon Dioxide 28.0 Anion Gap 7 BUN 18 Creatinine 1.00 Estim Creat Clear Calc 73.22 Est GFR (MDRD) Af Amer 98 Est GFR (MDRD) Non-Af 81 BUN/Creatinine Ratio 18.1 Glucose 87 Calcium 8.6 TSH 3.64 Code Visit Addendum: Dr. Perkins I personally examined the patient and reviewed the chart. I agree with the above. 58-year-old male with a history of schizoaffective disorder and hypothyroidism, who presented with an episode of syncope at home while eating dinner. There was some concern for possible seizure activity because he had splayed out his arms and knocked things off the table as he passed out, however he was not incontinent of stool or urine and did not have significant fatigue or any type of Gregory's paralysis after the episode. An EEG was performed today however it has not been read yet. An echo was also done which was normal and unchanged from his previous baseline echo. He received a couple liters of IV fluids and now feels much better than he did when he came in. Part of this issue is he is on thioridazine and Latuda for his schizophrenia/schizoaffective disorder, both of which can cause significant postural hypotension. I would consider transitioning him to 1 of the newer antipsychotics if this continues to be an issue. CT and MRI of the brain were both negative. He is to follow-up with his primary care physician in the next 3-5 days, per the there was concern for his thyroid function being abnormal, TSH was obtained which was 3.64. OBSV E&M: [id number] Observation care discharge
--- NOTE | 2018-11-14 12:06 | EEG ---
- Electroencephalogram This is an 18 channel electroencephalogram performed utilizing the International 10-20 electrode placement protocol as well as hyperventilation and EKG reference leads on this 66-year-old male with a history of syncope. Background activity is 8 Hz symmetrically in the posterior leads which attenuates with eye opening. Hyperventilation is performed for 2 minutes with good effort with no lateralizing or epileptiform changes. The patient did drowse during the recording to stage I and II sleep with no lateralizing or epileptiform changes and photic stimulation generates a normal symmetric driving response in the posterior leads. EKG does demonstrate PVCs occasionally. Impression: Normal awake electroencephalogram. Further evaluation of PVCs with formal ECG is recommended if this is felt to be clinically pertinent.
== END 2018-11-13 15:07 | disposition home or self-care (01) ==
LOC: ED 14:32 → PCU 15:37
PROVIDERS: Emergency Provider Emergency Medicine; Family Provider Family Medicine; PCP Family Medicine; Visit Provider Family Medicine
DX: R55 Syncope and collapse (principal); E03.9 Hypothyroidism, unspecified; Z79.899 Other long term (current) drug therapy; K58.9 Irritable bowel syndrome, unspecified; F25.9 Schizoaffective disorder, unspecified; R47.81 Slurred speech; I36.1 Nonrheumatic tricuspid (valve) insufficiency
CPT/HCPCS: 36415; 70450; 70551; 71045; 80048; 84443; 84484; 85025; 93005; 93306; 95819; 97161; 97165; 97802; 99285; J7030; A4216

== ENCOUNTER → 2019-04-08 10:24 | Outpatient (CLI) | payer SELFPAY ==
[2019-04-08 08:08] VITALS: BMI 20.1
[2019-04-08 12:40] LABS: Anion Gap 5 (5-15); BUN 20 mg/dL (7-18); BUN/Creat Ratio 21.7 RATIO (10-20); Calcium,Total 9.2 mg/dL (8.5-10.1); Chloride 105 mmol/L (98-107); Creatinine, Serum 0.92 mg/dL (0.70-1.30); EST Glomerular Filtration Rate 89 mL/min (>60); Est Glom Filt Rate - Afr Amer 108 mL/min (>60); Glucose 94 mg/dL (74-106); Potassium 4.1 mmol/L (3.5-5.1); Sodium Level 140 mmol/L (136-145)
== END ==
PROVIDERS: Family Provider Family Medicine; PCP Family Medicine; Referring Provider Internal Medicine Cardiovascular Disease; Visit Provider Internal Medicine Cardiovascular Disease
DX: I95.9 Hypotension, unspecified (principal)
CPT/HCPCS: 36415; 80048; 82533

== ENCOUNTER → 2019-04-17 07:47 | Outpatient (CLI) | payer SELFPAY ==
[2019-04-08 08:08] VITALS: BMI 20.1
--- NOTE | 2019-04-17 07:56 | CT_ITS ---
HISTORY: Adrenal insufficiency. Technique: Following the uneventful administration of 100 ML of Isovue-300 contiguous helical images were obtained from the ascending aorta to the sacroiliac joint. 2-D reformats. 372 images. Imaging was performed during arterial phase without precontrast and without delayed imaging. Findings: Scarring within the lung bases especially within the azygoesophageal recess likely related to enthesophytes within the lower thoracic spine. The left ventricle is slightly enlarged. The pulmonary outflow tract appears normal. The ascending thoracic aorta is slightly prominent. There is reflux of the injected contrast bolus from the right atrium into the IVC and hepatic veins suggestive of poor cardiac output. Atherosclerotic plaque is present within the abdominal aorta. The abdominal aorta is mildly tortuous. There is no aneurysm or dissection. Flow is present within the celiac trunk, the SMA, solitary left and one right renal artery, and the JAYLIN. The left renal artery is a very early bifurcation, almost at its origin. Dense calcific plaque is present at the origin of the JAYLIN, but without apparent stenosis. Calcific plaque continues into the origin of both common iliac arteries. Common iliac arteries remain patent to the origins of both left and right internal and external iliac arteries. The adrenal glands are normal. The gallbladder remains. The liver, spleen, pancreas are normal. The right kidney is normal. Left renal cyst both cortical and parapelvic. Bowel gas pattern is normal. The patient has a low amount of intraperitoneal fat. Wedge compression fracture to the lowest thoracic vertebral body. Minimal wedging to neck the lowest rib-bearing vertebral body. Fairly severe wedging to the vertebral body above that.. There are only 4 [id number] lumbar vertebral bodies. The lowest thoracic vertebral body ribs are tiny. On the CT scan the abdomen and pelvis I cannot determine if that is T12 or T3. Facets are adequately aligned. No spinous or transverse process fractures are appreciated. CT/CTA Abdomen W/WO Contrast IMPRESSION: No significant atrophy or hypertrophy to the adrenal glands. Left renal cysts. Atherosclerotic disease within the abdominal aorta without aneurysm or dissection. Mild cardiomegaly with poor cardiac output due to reflux of the contrast bolus into the IVC and hepatic veins. Lower amounts of intraperitoneal fat. Insufficiency fractures within the lumbar and lower thoracic spine. These appear to be old. Individualized dose optimization techniques were used for this CT. at 0002 Reported and signed by: Jefferson Almonte MD Electronically Signed: Jefferson Almnote MD at 0:01 EDT Tel , Service support ,
== END ==
PROVIDERS: Family Provider Family Medicine; PCP Family Medicine; Referring Provider Internal Medicine Cardiovascular Disease; Visit Provider Internal Medicine Cardiovascular Disease
DX: I95.9 Hypotension, unspecified (principal)
CPT/HCPCS: 74175; Q9967